=== PATIENT | female | born 2000 | race African-American/Black ===

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

== ENCOUNTER → 2019-03-17 | Outpatient (REF) | payer OTHER ==
[2019-03-17 20:49] LABS: BASO % 0.3 % (0.0-1.0); EOS # 0.2 10^3/uL (0.0-0.5); EOS % 2.7 % (0.0-3.0); HEMATOCRIT 42.4 % (36.0-47.0); HEMOGLOBIN 13.9 g/dl (12.0-15.5); LYMPH # 2.2 10^3/uL (1.5-5.0); LYMPH % 30.3 % (24.0-44.0); MEAN CORPUSCULAR HEMOGLOBIN 30.3 pg (27.0-33.0); MEAN CORPUSCULAR HGB CONC 32.8 g/dl (32.0-36.5); MEAN CORPUSCULAR VOLUME 92.4 fl (80.0-96.0); MONO # 0.7 10^3/uL (0.0-0.8); MONO % 9.1 % (0.0-5.0); NEUTROPHILS # 4.1 10^3/uL (1.5-8.5); NEUTROPHILS % 57.3 % (36.0-66.0); PLATELET COUNT, AUTOMATED 367 10^3/uL (150-450); RED BLOOD COUNT 4.59 10^6/uL (4.00-5.40); WHITE BLOOD COUNT 7.2 10^3/uL (4.0-10.0)
[2019-03-17 20:51] LABS: APPEARANCE, URINE HAZY (CLEAR); BACTERIA, URINE AUTO 1+ (NEGATIVE); BILIRUBIN, URINE AUTO NEGATIVE (NEGATIVE); BLOOD, URINE BLOOD 3+ (NEGATIVE); COLOR, URINE YELLOW (YELLOW); GLUCOSE, URINE (UA) AUTO NEGATIVE (NEGATIVE); KETONE, URINE AUTO NEGATIVE (NEGATIVE); LEUKOCYTE ESTERASE, URINE AUTO TRACE (NEGATIVE); NITRITE, URINE AUTO NEGATIVE (NEGATIVE); PROTEIN, URINE AUTO NEGATIVE (NEGATIVE); RBC, URINE AUTO TNTC /HPF (0-3); SPECIFIC GRAVITY URINE AUTO 1.006 (1.002-1.035); SQUAMOUS EPITHELIAL CELL UR AU 1 /HPF (0-6); UROBILINOGEN, URINE AUTO 0.2 mg/dL (0.0-2.0); WBC, URINE AUTO 4 /HPF (0-3)
[2019-03-17 21:06] LABS: BLOOD UREA NITROGEN 10 MG/DL (7-18); CALCIUM LEVEL 9.5 MG/DL (8.5-10.1); CARBON DIOXIDE LEVEL 27 MEQ/L (21-32); CHLORIDE LEVEL 105 MEQ/L (98-107); CREATININE FOR GFR 0.66 MG/DL (0.55-1.30); GLUCOSE, FASTING 78 MG/DL (70-100); POTASSIUM SERUM 4.1 MEQ/L (3.5-5.1); SODIUM LEVEL 139 MEQ/L (136-145)
== END ==
LOC: M SFHCLERA 15:54
PROVIDERS: ATTEND Family Medicine
DX: I10 Essential (primary) hypertension (principal)

== ENCOUNTER → 2019-03-24 | Outpatient (REF) | payer OTHER ==
[2019-03-24 21:11] LABS: APPEARANCE, URINE HAZY (CLEAR); BACTERIA, URINE AUTO NEGATIVE (NEGATIVE); BILIRUBIN, URINE AUTO NEGATIVE (NEGATIVE); BLOOD, URINE BLOOD NEGATIVE (NEGATIVE); COLOR, URINE YELLOW (YELLOW); GLUCOSE, URINE (UA) AUTO NEGATIVE (NEGATIVE); KETONE, URINE AUTO NEGATIVE (NEGATIVE); LEUKOCYTE ESTERASE, URINE AUTO NEGATIVE (NEGATIVE); NITRITE, URINE AUTO NEGATIVE (NEGATIVE); PROTEIN, URINE AUTO NEGATIVE (NEGATIVE); RBC, URINE AUTO 2 /HPF (0-3); SQUAMOUS EPITHELIAL CELL UR AU 5 /HPF (0-6); UROBILINOGEN, URINE AUTO 0.2 mg/dL (0.0-2.0); WBC, URINE AUTO 1 /HPF (0-3)
== END ==
LOC: M SFHCLERA 09:24
PROVIDERS: ATTEND Family Medicine
DX: I10 Essential (primary) hypertension (principal); R31.9 Hematuria, unspecified

== ENCOUNTER → 2019-03-31 | Outpatient (CLI) | payer OTHER ==
--- NOTE | 2019-04-01 06:26 | ECHO ---
DATE OF PROCEDURE: 03/31/2019 DATE OF : 2000 AGE: 19 GENDER: Female HEIGHT: 59 inches WEIGHT: 130 pounds BODY SURFACE AREA: 1.54 m2 OUTPATIENT: REFERRING PHYSICIAN: Dr. Gene Frost INDICATION: Hypertension. MEASUREMENTS: 2-D Measurements: RV: 3.2 cm LV: 3.4 cm Septum: 1.0 cm Posterior wall: 1.0 cm Aortic root: 3.3 cm LA: 2.7 cm LVEF: 75% Doppler Measurements: AV: 1.3 m/s LVOT: 1.0 m/s LVOT diameter: 1.7 cm MV: E: 83, A: 66, EA ratio: 1.3 Early mitral deceleration time: 206 ms E prime: 12, A prime: 12, E/E prime ratio: 6.9 PV: 0.95 m/s Pulmonary artery acceleration time: 120 ms PASP: 25 mmHg IVC: 1.9 cm COMMENTS: Normal sinus rhythm without intraventricular conduction disturbance. M-mode and two-dimensional echocardiography was performed with pulsed, continuous wave, color flow and tissue Doppler studies. Normal left ventricular size, wall thickness and wall motion. Normal left atrial size and Doppler assessment of LV diastolic function and estimated mean left atrial pressure. Normal right heart chamber sizes and motion and normal estimated pulmonary arterial pressure. Normal IVC size and collapse against an elevated central venous pressure. Normal appearing and functioning valvular structures. Normal aortic root size. No apparent intracardiac mass or pericardial effusion.
== END ==
LOC: M CARPUL 12:46
PROVIDERS: ATTEND Family Medicine
DX: I10 Essential (primary) hypertension (principal)

== ENCOUNTER → 2019-04-26 | Outpatient (CLI) | payer OTHER ==
--- NOTE | 2019-04-27 00:56 | REP ---
Clinical: Hypertension. Technique: Lackey scale and color Doppler evaluation of the kidneys and renal vasculature using curved array transducer. Findings: The kidneys are essentially normal in contour size and echogenicity and reniform shape without hydronephrosis, nephrolithiasis, cystic or renal mass lesion. Right kidney measures 10.6 x 5.0 x 5.5 cm . Left kidney measures 9.7 x 4.5 x 4.4 cm . Bladder is incompletely distended and grossly normal by current evaluation. Color Doppler evaluation of the renal vasculature demonstrates normal arterial wave patterns, velocities, renal aortic ratios, resistive indices and the acceleration time. No sonographic evidence for renal arterial stenosis noted. Renal vein is patent. Right Kidney: Peak arterial velocity: 96 cm/sec . Renal aortic ratio: 0.93 . Resistive indices: 0.51 - 0.66 . Acceleration times: 0.022 - 0.044 . Left kidney: Peak arterial velocity: 137 cm/sec . Renal aortic ratio: 1.33 . Resistive indices: 0.52 - 0.55 . Acceleration times: 0.030 - 0.040 . Impression: 1. Normal appearance to the kidneys. 2. No sonographic evidence to suggest renal arterial stenosis. Electronically Signed by Ortiz Griffin MD 04/27/2019 12:48 A
== END ==
LOC: M RAD 10:40
PROVIDERS: ATTEND Family Medicine
DX: I10 Essential (primary) hypertension (principal)

== ENCOUNTER → 2019-10-07 | Outpatient (CLI) | payer OTHER, BC ==
--- NOTE | 2019-10-07 16:51 | REP ---
Clinical: Mid chest pain . Comparison: None . Technique: PA and lateral. Findings: The mediastinum and cardiac silhouette are normal. The lung khanna are clear and without acute consolidation, effusion, or pneumothorax. The skeletal structures are intact and normal. Impression: 1. No acute cardiopulmonary process. Electronically Signed by Ortiz Griffin MD 10/07/2019 04:42 P
== END ==
LOC: M LRY 16:07
PROVIDERS: ATTEND Physician Assistant
DX: R07.9 Chest pain, unspecified (principal)

== ENCOUNTER → 2019-11-20 | Outpatient (REF) | payer BC ==
[2019-11-20 17:58] LABS: APPEARANCE, URINE CLEAR (CLEAR); BACTERIA, URINE AUTO NEGATIVE (NEGATIVE); BILIRUBIN, URINE AUTO NEGATIVE (NEGATIVE); BLOOD, URINE BLOOD NEGATIVE (NEGATIVE); COLOR, URINE COLORLESS (YELLOW); GLUCOSE, URINE (UA) AUTO NEGATIVE (NEGATIVE); KETONE, URINE AUTO NEGATIVE (NEGATIVE); LEUKOCYTE ESTERASE, URINE AUTO NEGATIVE (NEGATIVE); NITRITE, URINE AUTO NEGATIVE (NEGATIVE); PROTEIN, URINE AUTO NEGATIVE (NEGATIVE); RBC, URINE AUTO 1 /HPF (0-3); SQUAMOUS EPITHELIAL CELL UR AU 0 /HPF (0-6); UROBILINOGEN, URINE AUTO 0.2 mg/dL (0.0-2.0); WBC, URINE AUTO 0 /HPF (0-3)
== END ==
LOC: M SFHCLERA 17:32
PROVIDERS: ATTEND Family Medicine
DX: R32 Unspecified urinary incontinence (principal)

== ENCOUNTER → 2019-12-27 | Outpatient (CLI) | payer BC ==
[~2019-12-27] MED LIST: FAMO40TA3 PO; NORE0.353 PO; PANT40TA29 PO
--- NOTE | 2019-12-28 07:18 | REP ---
Clinical: Urinary tract infection. Technique: Real time ragland scale and color evaluation using curved array transducer. Findings: Bladder is normal in appearance and without significant irregular / focal wall thickening or mass lesion. Prevoid bladder measures 9.1 x 7.8 x 7.1 cm (250 ml). Postvoid bladder measures 2.7 x 0.7 x 0.7 cm (1 ml). Postvoid residual equals 0.4% Impression: Essentially normal bladder ultrasound. Electronically Signed by Ortiz Griffin MD 12/28/2019 07:10 A
== END ==
LOC: M RAD 15:46
PROVIDERS: ATTEND Family Medicine
DX: R32 Unspecified urinary incontinence (principal)

== ENCOUNTER → 2020-01-19 | Outpatient (REF) | payer BC ==
[2020-01-19 18:49] LABS: BASO % 0.1 % (0.0-1.0); EOS # 0.1 10^3/uL (0.0-0.5); EOS % 1.8 % (0.0-3.0); HEMATOCRIT 39.6 % (36.0-47.0); HEMOGLOBIN 13.2 g/dl (12.0-15.5); LYMPH % 28.1 % (24.0-44.0); MEAN CORPUSCULAR HEMOGLOBIN 31.3 pg (27.0-33.0); MEAN CORPUSCULAR HGB CONC 33.3 g/dl (32.0-36.5); MEAN CORPUSCULAR VOLUME 93.8 fl (80.0-96.0); MONO # 0.6 10^3/uL (0.0-0.8); MONO % 7.8 % (0.0-5.0); NEUTROPHILS # 4.4 10^3/uL (1.5-8.5); NEUTROPHILS % 62.1 % (36.0-66.0); PLATELET COUNT, AUTOMATED 269 10^3/uL (150-450); RED BLOOD COUNT 4.22 10^6/uL (4.00-5.40)
[2020-01-19 19:29] LABS: ALBUMIN 3.7 GM/DL (3.2-5.2); ALT/SGPT 19 U/L (12-78); BILIRUBIN,TOTAL 0.1 MG/DL (0.2-1.0); BLOOD UREA NITROGEN 11 MG/DL (7-18); CARBON DIOXIDE LEVEL 28 MEQ/L (21-32); CHLORIDE LEVEL 106 MEQ/L (98-107); CREATININE FOR GFR 0.72 MG/DL (0.55-1.30); GLOMERULAR FILTRATION RATE > 60.0 (>60); GLUCOSE, FASTING 69 MG/DL (70-100); LIPASE 93 U/L (73-393); POTASSIUM SERUM 4.4 MEQ/L (3.5-5.1); SODIUM LEVEL 138 MEQ/L (136-145); TOTAL PROTEIN 7.3 GM/DL (6.4-8.2)
== END ==
LOC: M SFHCLERA 14:54
PROVIDERS: ATTEND Family Medicine
DX: K21.9 Gastro-esophageal reflux disease without esophagitis (principal); R10.13 Epigastric pain

== ENCOUNTER → 2020-04-18 | Outpatient (CLI) | payer BC | LOC: M LABSMTC 11:07 | PROVIDERS: ATTEND Anesthesiology | DX: Z01.812 Encounter for preprocedural laboratory examination (principal); Z20.828 Contact with and (suspected) exposure to other viral communicable diseases | CPT/HCPCS: C9803; U0003 ==

== ENCOUNTER 2020-04-23 12:46 | Day surgery (SDC) | payer BC ==
[~2020-04-23] VITALS: Ht 149.9 cm; Wt 59.6 kg
[2020-04-23] MEDS ORDERED: propofoL 200 MG/20 ML VIAL As Ordered ONE (13:32)
[2020-04-23] MEDS ORDERED: LIDOCAINE 2% 100MG/5ML SDV (FOR ANES.) As Ordered ONE (13:32)
[2020-04-23] MEDS ORDERED: fentaNYL 100 MCG/2 ML INJECTION (J3010) As Ordered ONE (13:37)
[2020-04-23 14:20] VITALS: BP 117/69
--- NOTE | 2020-04-23 14:31 | ROOR ---
Patient Name: Osvaldo Polanco Procedure Date: 04/23/2020 1:59 PM Date of : 2000 Age: 20 Room: [facility] Gender: Female Note Status: Finalized Procedure: Upper GI endoscopy Indications: Dyspepsia, Suspected gastro-esophageal reflux disease Providers: Anthony Cruz MD Referring MD: Gene Frost DO Requesting Provider: Medicines: Monitored Anesthesia Care Complications: No immediate complications. Procedure: Pre-Anesthesia Assessment: - Prior to the procedure, a History and Physical was performed, and patient medications and allergies were reviewed. The patient is competent. The risks and benefits of the procedure and the sedation options and risks were discussed with the patient. All questions were answered and informed consent was obtained. Patient identification and proposed procedure were verified by the physician and the nurse in the procedure room. Mental Status Examination: alert and oriented. Airway Examination: normal oropharyngeal airway and neck mobility. Respiratory Examination: clear to auscultation. CV Examination: normal. Prophylactic Antibiotics: The patient does not require prophylactic antibiotics. Prior Anticoagulants: The patient has taken no previous anticoagulant or antiplatelet agents. ASA Grade Assessment: II - A patient with mild systemic disease. After reviewing the risks and benefits, the patient was deemed in satisfactory condition to undergo the procedure. The anesthesia plan was to use monitored anesthesia care (MAC). Immediately prior to administration of medications, the patient was re-assessed for adequacy to receive sedatives. The heart rate, respiratory rate, oxygen saturations, blood pressure, adequacy of pulmonary ventilation, and response to care were monitored throughout the procedure. The physical status of the patient was re-assessed after the procedure. The Endoscope was introduced through the mouth, and advanced to the second part of duodenum. The upper GI endoscopy was accomplished without difficulty. The patient tolerated the procedure well. Findings: The examined esophagus was normal. The Z-line was regular and was found 36 cm from the incisors. Patchy mild inflammation characterized by erythema and granularity was found in the gastric antrum. Biopsies were taken with a cold forceps for Helicobacter pylori testing. Verification of patient identification for the specimen was done by the physician and nurse using the patient's name, date and medical record number. Estimated blood loss was minimal. No gross lesions were noted in the duodenal bulb, in the second portion of the duodenum and in the third portion of the duodenum. Biopsies for histology were taken with a cold forceps for evaluation of celiac disease. Impression: - Normal esophagus. - Z-line regular, 36 cm from the incisors. - Gastritis. Biopsied. - No gross lesions in the duodenal bulb, in the second portion of the duodenum and in the third portion of the duodenum. Biopsied. Recommendation: - Patient has a contact number available for emergencies. The signs and symptoms of potential delayed complications were discussed with the patient. Return to normal activities tomorrow. Written discharge instructions were provided to the patient. - High fiber diet. - Continue present medications. - Await pathology results. - Follow an antireflux regimen. - Telephone GI clinic for pathology results in 2 weeks. - Return to primary care physician. Anthony Cruz MD Anthony Cruz MD 04/23/2020 2:31:04 PM Electronically signed by Anthony Cruz MD Number of Addenda: 0 Note Initiated On: 04/23/2020 1:59 PM Estimated Blood Loss: Estimated blood loss was minimal.
== END 2020-04-23 14:48 | disposition home or self-care (01) ==
LOC: M OPP 12:46
PROVIDERS: ATTEND Internal Medicine Gastroenterology
DX: R10.13 Epigastric pain (principal); D13.1 Benign neoplasm of stomach; D13.30 Benign neoplasm of unspecified part of small intestine; K29.70 Gastritis, unspecified, without bleeding; K21.9 Gastro-esophageal reflux disease without esophagitis; Z79.899 Other long term (current) drug therapy
CPT/HCPCS: 43239; 88305; J3010

== ENCOUNTER 2024-12-21 11:50 | Emergency (ER) | payer BC ==
[~2024-12-21] VITALS: Ht 149.9 cm; Wt 73.6 kg
[2024-12-21 11:52] VITALS: BP 174/94; TEMP 99.7; O2SAT 98
[2024-12-21] MEDS ORDERED: HYDR50TA70 (11:58)
[2024-12-21] MEDS ORDERED: FAMO1TAB11 (11:58)
[2024-12-21] MEDS ORDERED: CETI-24 PO (13:39)
== END 2024-12-21 13:54 | disposition home or self-care (01) ==
LOC: M ED 11:50
DX: J02.9 Acute pharyngitis, unspecified (principal); K21.9 Gastro-esophageal reflux disease without esophagitis; Z79.899 Other long term (current) drug therapy
CPT/HCPCS: 31575; 87880; 99283; G0463

== ENCOUNTER → 2025-02-09 | Outpatient (CLI) | payer BC ==
[~2025-02-09] MED LIST changes: +BARIUM SULFATE 700 MG TABLET As Ordered ONE; +CETI-24 PO; +E-Z-PAQUE 96% w/w SUSP 176 GM BTL As Ordered ONE; +FAMO1TAB11; +HYDR50TA70; +VARIBAR NECTAR 40% w/v 240ML SUSP BTL As Ordered ONE; +VARIBAR PUDDING 40% w/v 230ML TUBE As Ordered ONE
== END ==
LOC: M RAD 11:59
PROVIDERS: ATTEND Otolaryngology
DX: K21.9 Gastro-esophageal reflux disease without esophagitis (principal)

== ENCOUNTER 2025-03-20 19:32 | Emergency (ER) | payer BC, SELFPAY ==
[~2025-03-20] VITALS: Ht 149.9 cm; Wt 63.6 kg
[~2025-03-20 19:32] MED LIST changes: -BARIUM SULFATE 700 MG TABLET As Ordered ONE; -E-Z-PAQUE 96% w/w SUSP 176 GM BTL As Ordered ONE; -VARIBAR NECTAR 40% w/v 240ML SUSP BTL As Ordered ONE; -VARIBAR PUDDING 40% w/v 230ML TUBE As Ordered ONE
[2025-03-20] MEDS ORDERED: LISI10TA22 (19:47)
[2025-03-20] MEDS ORDERED: PANT40TA29 (19:47)
[2025-03-20] MEDS: IBUPROFEN 800 MG TAB PO ONE (20:58)
[2025-03-20] MEDS: ACETAMINOPHEN 325 MG TAB PO ONE (20:58)
[2025-03-20] MEDS: FIORICET TAB PO ONE (21:43)
[2025-03-20] MEDS ORDERED: KETOROLAC 30 MG/ML 1 ML VIAL IV ONE (22:35)
[2025-03-20] MEDS ORDERED: NS (Normal Saline) 0.9% 1,000 ML IV ONE (22:35)
[2025-03-20 22:46] LABS: RSV AMPLIFICATION NEGATIVE (NEGATIVE)
[2025-03-21] MEDS ORDERED: KETOROLAC 60 MG/2 ML VIAL IM ONE
[2025-03-21] MEDS: ACETAMINOPHEN 325 MG TAB PO ONE (00:15)
[2025-03-21 01:21] VITALS: BP 136/97; TEMP 97.6; O2SAT 98
== END 2025-03-21 01:11 | disposition home or self-care (01) ==
LOC: M ED 19:32 → EDBD 19:32 → M ED 03-21 01:11
DX: U07.1 COVID-19 (principal); I10 Essential (primary) hypertension; K21.9 Gastro-esophageal reflux disease without esophagitis; Z79.899 Other long term (current) drug therapy
CPT/HCPCS: 87637; 87880; 96372; 99284; J1100